=== PATIENT | female | born 1950 | race Hispanic/Latino ===

== ENCOUNTER → 2021-05-24 | Outpatient (CLI) | payer MEDICARE | LOC: MAMMO 12:49 | PROVIDERS: ATTEND Student in an Organized Health Care Education/Training Program | DX: Z12.31 Encounter for screening mammogram for malignant neoplasm of breast (principal); Z78.0 Asymptomatic menopausal state | CPT/HCPCS: 77067; 77080 ==

== ENCOUNTER → 2021-07-06 | Outpatient (CLI) | payer MEDICARE ==
[~2021-07-06] MED LIST: IOPAMIDOL 370 MG/ML 200 ML INFUS..BTL INJ ONE; SODIUM CHLORIDE 0.9% 500ML 500 ML ONE; SODIUM CHLORIDE 0.9% 50ML 50 ML ONE
[2021-07-06 12:33] LABS: CREATININE, SERUM 1.33 mg/dL (0.57-1.11)
== END ==
LOC: CT 11:27
PROVIDERS: ATTEND Student in an Organized Health Care Education/Training Program
DX: D72.820 Lymphocytosis (symptomatic) (principal)
CPT/HCPCS: 36415; 71260; 74177; 82565; 82948; 84520; J7040; Q9967

== ENCOUNTER → 2021-09-14 | Outpatient (CLI) | payer MEDICARE | LOC: MAMMO 09:24 | PROVIDERS: ATTEND Student in an Organized Health Care Education/Training Program | DX: N64.89 Other specified disorders of breast (principal) ==

== ENCOUNTER → 2022-11-14 | Outpatient (CLI) | payer MEDICARE ==
[~2022-11-14] MED LIST changes: -IOPAMIDOL 370 MG/ML 200 ML INFUS..BTL INJ ONE; +IOPAMIDOL 610MG/1ML 300 MG/ML VIAL IV ONE; -SODIUM CHLORIDE 0.9% 50ML 50 ML ONE
[2022-11-14 08:18] LABS: CREATININE, SERUM 1.04 mg/dL (0.57-1.11)
== END ==
LOC: CT 07:26
PROVIDERS: ATTEND Family Medicine
DX: J44.1 Chronic obstructive pulmonary disease with (acute) exacerbation (principal); R91.1 Solitary pulmonary nodule
CPT/HCPCS: 36415; 71260; 82565; 84520; 96360; J7040; Q9967

== ENCOUNTER → 2024-03-16 | Outpatient (REF) | payer MEDICARE ==
[~2024-03-16] MED LIST changes: +IOPAMIDOL 370 MG/ML 100 ML INFUS..BTL INJ ONE; -IOPAMIDOL 610MG/1ML 300 MG/ML VIAL IV ONE; -SODIUM CHLORIDE 0.9% 500ML 500 ML ONE
[2024-03-16 12:41] LABS: CREATININE, SERUM 1.16 mg/dL (0.57-1.11)
== END ==
LOC: CT 11:45
PROVIDERS: ATTEND Family Medicine
DX: R91.1 Solitary pulmonary nodule (principal)
CPT/HCPCS: 36415; 71260; 82565; 84520; Q9967

== ENCOUNTER → 2025-03-02 | Outpatient (REF) | payer MEDICARE | LOC: MAMMO 10:10 | PROVIDERS: ATTEND Nurse Practitioner Family | DX: Z12.31 Encounter for screening mammogram for malignant neoplasm of breast (principal) | CPT/HCPCS: 77067 ==